=== PATIENT | female | born 1990 | race Two or more races ===

== ENCOUNTER 2018-12-11 06:24 | Emergency (ER) | payer OTHER ==
[~2018-12-11] VITALS: Ht 160 cm; Wt 63.5 kg
== END 2018-12-11 21:32 | disposition home or self-care (01) ==
LOC: ER 06:24
DX: O26.891 Other specified pregnancy related conditions, first trimester (principal); J09.X2 Influenza due to identified novel influenza A virus with other respiratory manifestations; J02.8 Acute pharyngitis due to other specified organisms; Z34.81 Encounter for supervision of other normal pregnancy, first trimester